=== PATIENT | male | born 1970 | race Two or more races ===

== ENCOUNTER 2020-07-24 23:41 | Inpatient (IN) | payer OTHER ==
[~2020-07-24] VITALS: Ht 167.6 cm; Wt 99.8 kg
--- NOTE | 2020-07-25 00:05 | NUR ---
PATIENT CAME TO THE ER FROM HOME BIBRA C/O SOB 88-90% ON ROOM AIR. PER AMBULANCE'S REPORT APTIENT IS ON 4L OF NASAL CANNULA EN ROUTE TO THE HOSPITAL. PATIENT ALSO NOTED TO HAVE 164/102 BLOOD PRESSURE AND TACHYCARDIC AT 120s PER RA REPORT. PATIENT IS AAOX4. BREATHING EVENLY AND UNLABORED AT 91% ON ROOM AIR; 96% OXYGEN SATURATION AT 4L NASAL CANNULA. PATIENT IS CONNECTED TO THE MAILER. PATIENT ALSO HAS ELEVATED TMERPATURE OF 102s.
[2020-07-25] MEDS ORDERED: DEXAMETHASONE SOD PHOSPHATE 4 MG/ML VIAL IV STA (00:26)
[2020-07-25] MEDS ORDERED: DEXAMETHASONE SOD PHOSPHATE 4 MG/ML VIAL ONE (00:29)
[2020-07-25 00:55] LABS: BASOPHILS % (AUTO) 0.1 % (0.0-2.0); HEMATOCRIT 45 % (39-51); HEMOGLOBIN 15.1 g/dL (13.5-17.5); LYMPHOCYTES # (AUTO) 0.9 /CMM (0.8-4.8); LYMPHOCYTES % (AUTO) 9.9 % (20.0-44.0); MEAN CORPUSCULAR HGB CONC 33 g/dl (31.0-36.0); MEAN CORPUSCULAR VOLUME 85 fL (80-96); MONOCYTES # (AUTO) 0.8 /CMM (0.1-1.30); NEUTROPHILS # (AUTO) 7.9 /CMM (1.8-8.9); PLATELET COUNT (AUTO) 226 /CMM (150-450); RED BLOOD CELL COUNT(AUTO) 5.31 MIL/uL (4.5-6.0); WHITE BLOOD COUNT (AUTO) 9.6 K/uL (4.3-11.0)
--- NOTE | 2020-07-25 01:00 | NUR ---
YASMINEID SWABBED, SENT TO LAB.
[2020-07-25] MEDS ORDERED: AZITHROMYCIN 500 MG in IV D5W 250 ML IV ONE (01:30)
[2020-07-25] MEDS ORDERED: ACETAMINOPHEN 325 MG TABLET PO ONE (01:30)
[2020-07-25 02:43] LABS: D-DIMER 0.61 mg/L(FEU (0.17-0.50)
[2020-07-25 02:48] LABS: CALCIUM, SERUM 8.5 mg/dL (8.5-10.1); CARBON DIOXIDE 27 mmol/L (21-32); CHLORIDE 97 mmol/L (98-107); CREATININE 0.9 mg/dL (0.6-1.3); GLUCOSE 114 mg/dL (74-106); POTASSIUM 3.4 mmol/L (3.5-5.1); SODIUM SERUM 135 mmol/L (136-145); UREA NITROGEN, BLOOD 12 mg/dL (7-18)
[2020-07-25] MEDS ORDERED: AZITHROMYCIN 500 MG VIAL ONE (02:51)
[2020-07-25] MEDS ORDERED: ACETAMINOPHEN ES 500 MG TABLET ONE (02:51)
[2020-07-25 03:02] LABS: ALANINE AMINOTRANSFERASE 56 U/L (12-78); ALBUMIN 3.6 g/dL (3.4-5.0); ALKALINE PHOSPHATASE 56 U/L (46-116); ASPARTATE AMINOTRANSFERASE 51 U/L (15-37); B-TYPE NATRIURETIC PEPTIDE 51 PG/ML (0-125); BILIRUBIN,TOTAL 0.4 mg/dL (0.2-1.0)
[2020-07-25 03:05] LABS: CREATINE KINASE, TOTAL 526 U/L (39-308); FERRITIN 1400 ng/mL (8-388)
[2020-07-25 03:07] LABS: C-REACTIVE PROTEIN 18.6 mg/dL (0.0-0.9)
--- NOTE | 2020-07-25 05:19 | NUR ---
BED ASSIGNMENT 208
[2020-07-25] MEDS ORDERED: ONDANSETRON HCL/PF 4 MG/2 ML VIAL IVP PRN (06:00)
[2020-07-25] MEDS ORDERED: ACETAMINOPHEN 325 MG TABLET PO PRN (06:00)
[2020-07-25] MEDS ORDERED: HYDROCODONE/APAP 5/325MG TABLET PO PRN (06:00)
[2020-07-25] MEDS ORDERED: ALBUTEROL SULFATE INH 18 GM HFA.AER.AD IH PRN (06:00)
[2020-07-25] MEDS ORDERED: MAGNESIUM HYDROXIDE 30 ML UDC PO PRN (06:00)
--- NOTE | 2020-07-25 06:13 | NUR ---
REPORT GIVEN TO JIMMY UGALDE FOR ALYCIA.
--- NOTE | 2020-07-25 06:56 | NUR ---
PATIENT TAKEN TO ASSIGNED ROOM FOR ALYCIA.
[2020-07-25 07:24] LABS: CALCIUM, SERUM 8.4 mg/dL (8.5-10.1)
[2020-07-25 07:31] LABS: ALBUMIN 3.2 g/dL (3.4-5.0); BILIRUBIN,TOTAL 0.4 mg/dL (0.2-1.0); MAGNESIUM 2.5 mg/dL (1.8-2.4); PHOSPHORUS 4.4 mg/dL (2.5-4.9); TOTAL PROTEIN, SERUM 7.6 g/dL (6.4-8.2)
[2020-07-25 07:51] LABS: BASOPHILS % (AUTO) 0.3 % (0.0-2.0); EOSINOPHILS % (AUTO) 0.1 % (0.0-6.0); HEMATOCRIT 46 % (39-51); HEMOGLOBIN 14.7 g/dL (13.5-17.5); LYMPHOCYTES # (AUTO) 1.3 /CMM (0.8-4.8); LYMPHOCYTES % (AUTO) 17.3 % (20.0-44.0); MEAN CORPUSCULAR HGB CONC 32 g/dl (31.0-36.0); MEAN CORPUSCULAR VOLUME 87 fL (80-96); MONOCYTES # (AUTO) 0.4 /CMM (0.1-1.30); MONOCYTES % (AUTO) 4.9 % (2.0-12.0); NEUTROPHILS # (AUTO) 5.7 /CMM (1.8-8.9); NEUTROPHILS % (AUTO) 77.4 % (43.0-81.0); PLATELET COUNT (AUTO) 205 /CMM (150-450); RED BLOOD CELL COUNT(AUTO) 5.25 MIL/uL (4.5-6.0); WHITE BLOOD COUNT (AUTO) 7.3 K/uL (4.3-11.0)
--- NOTE | 2020-07-25 07:55 | NUR ---
RN NOTES: -AT 0613AM, REPORT GIVEN BY ANTONINO LYNN. -PATINT ADMITTED FROM HOME VIA AMBULANCE DUE TO ABDOMINA PAIN FOR 5 DAYS, SOB FOR 3 DAY, HE HAS FEVER-102.6, HIGH BP-164/102 CO-120 HE HAS A DESATURATION SPO2-885, COVID (+) A WEEK AGO, BEFORE HE WAS TRANSFERRED HIS V/S IS STABILIZED IN THE ER LATEST BP-114/80 CO-79 SPO2-98% WITH O2 AT 4L/MIN VIA NC. -FOR TELE MONITOR, USES URINAL,SKIN IS INTACT, RAC G#18 INTACT AND PATIENT, CXR-PNEUMONIA, CT ABDOMEN,PELVIS WITHOUT CONTRAST-NO BOWEL OBSTRUCTION, MILD DIVERTICULOSIS. -AT AROUND 0650 PATIENT ARRIVED IN THE UNIT, ACCOMPANIED BY 2 STAFF ON TELE MONITOR,O2 CONTINUE AT 4L/MIN VIA NC, BELONGINGS CHECKED, PATIENT SIGNED, SKIN IS INTATC NO SKIN ISSUES NOTED AT THIS TIME, AMBULATORY, A/O3-4 CITIZEN OF [place] SPEAKING , ABLE TO COMMUNICATE IN [place]OREAN. -V/S CHECKED T-98.1 SPO2-96% CO-93 RR-20BP-134/91 WT-220 LBS HT-5'6. -ENDORSED TO INCOMING RN FOR ADMISSION AND CONTINUITY OF CARE.
[2020-07-25] MEDS: CHOLECALCIFEROL 1,000 UNIT TABLET (VIT D3) PO SCH (08:27)
[2020-07-25] MEDS: DEXAMETHASONE SOD PHOSPHATE 10 MG/ML VIAL IV SCH (08:27)
[2020-07-25] MEDS: PANTOPRAZOLE 40 MG TABLET.DR PO SCH (08:27)
[2020-07-25] MEDS: ENOXAPARIN SODIUM 40 MG/0.4 ML DISP.SYRIN SQ SCH (08:30)
[2020-07-25] MEDS ORDERED: METO25TA20 PO (09:18)
[2020-07-25] MEDS ORDERED: ASPI-1169 PO (09:18)
[2020-07-25] MEDS ORDERED: AMLO2.5T4 PO (09:18)
[2020-07-25] MEDS ORDERED: DEXTROSE 50%-WATER 50 ML DISP.SYRIN IV PRN (13:00)
[2020-07-25] MEDS: AMLODIPINE BESYLATE 2.5 MG TABLET PO SCH (14:04)
[2020-07-25] MEDS: ASPIRIN 81 MG TAB.CHEW PO SCH (14:04)
[2020-07-25] MEDS: METOPROLOL TARTRATE 25 MG TABLET PO SCH ×2 (14:06→22:08)
[2020-07-25] MEDS: INSULIN REGULAR, HUMAN 100 UNIT/ML 3 ML VIAL SQ PRN ×2 (16:40→22:20)
[2020-07-25] MEDS: BLOOD SUGAR DIAGNOSTIC 1 EACH STRIP IN SCH ×2 (16:43→22:08)
--- NOTE | 2020-07-25 18:30 | NUR ---
RN closing Patient in bed resting, does no appears distress or discomfort. Skin is warm to touch, keep clean/dry, intact midline on right upper arm. Respiratory even and unlabored with oxygen at 4L O2sat 95%. BS 140 mg/dL and given insulin 2 units from sliding sacrale guided. Kept elevated HOB for ensure air way and aspiration precaution and lowest bed for safety. Call light within reach, will endorse manufacturing shift supervisor
[2020-07-25 20:00] VITALS: BP 125/90
--- NOTE | 2020-07-25 20:27 | NUR ---
tele network control operator initial notes received pt on bed awake and alert talking to someone on his cellphone, not in any distress or any discomfort. he's o2 at 4 liters via nasal canula. encourage him to use the call light if he needs the nurse or needs some help. tele SR with Pac's per monitor. kept him warm and comfortable at all times. place call light at reach. will continue monitoring.
[2020-07-25] MEDS: ATORVASTATIN 10 MG TABLET PO SCH (22:07)
--- NOTE | 2020-07-25 22:15 | NUR ---
tele criminology professor notes routine meds given and also blood sugar checked done 156, 2 units of insulin given shira Sq as ordered. snacks also served. no signs of hypo /hyper glycemia noted. will continue monitoring.
[2020-07-26] VITALS: BP 127/88
[2020-07-26 04:00] VITALS: BP 125/82
[2020-07-26] MEDS: AZITHROMYCIN 500 MG in IV D5W 250 ML IV SCH (05:32)
[2020-07-26 06:20] LABS: BASOPHILS % (AUTO) 0.1 % (0.0-2.0); HEMATOCRIT 45 % (39-51); HEMOGLOBIN 14.9 g/dL (13.5-17.5); LYMPHOCYTES # (AUTO) 1.6 /CMM (0.8-4.8); LYMPHOCYTES % (AUTO) 9.9 % (20.0-44.0); MEAN CORPUSCULAR HGB CONC 33 g/dl (31.0-36.0); MEAN CORPUSCULAR VOLUME 86 fL (80-96); MONOCYTES # (AUTO) 1.2 /CMM (0.1-1.30); MONOCYTES % (AUTO) 7.9 % (2.0-12.0); NEUTROPHILS # (AUTO) 12.9 /CMM (1.8-8.9); NEUTROPHILS % (AUTO) 82.1 % (43.0-81.0); PLATELET COUNT (AUTO) 294 /CMM (150-450); RED BLOOD CELL COUNT(AUTO) 5.26 MIL/uL (4.5-6.0); WHITE BLOOD COUNT (AUTO) 15.8 K/uL (4.3-11.0)
[2020-07-26] MEDS: BLOOD SUGAR DIAGNOSTIC 1 EACH STRIP IN SCH ×4 (06:54→21:28)
[2020-07-26] MEDS: INSULIN REGULAR, HUMAN 100 UNIT/ML 3 ML VIAL SQ PRN ×2 (07:01→17:20)
[2020-07-26 07:13] LABS: CALCIUM, SERUM 8.8 mg/dL (8.5-10.1); CREATININE 0.8 mg/dL (0.6-1.3); MAGNESIUM 2.6 mg/dL (1.8-2.4); PHOSPHORUS 4.5 mg/dL (2.5-4.9); POTASSIUM 3.7 mmol/L (3.5-5.1)
--- NOTE | 2020-07-26 07:34 | NUR ---
CRACKING UNIT OPERATOR OPENING NOTES RECEIVED PATIENT IN BED, AWAKE, A/O X4. PATIENT ON OXYGEN THERAPY AT 2LPM; BREATHING EVEN AND UNLABORED AT THIS TIME. NO SOB NOTED. TELE MONITOR WITH A CURRENT READING OF ST 105. NO COMPLAINS OF PAIN. SAFETY PRECAUTIONS IN PLACE; BED IN LOW POSITION AND LOCKED, RAILS UP X2, CALL LIGHT WITHIN REACH. WILL CONTINUE TO MONITOR PATIENT.
--- NOTE | 2020-07-26 07:35 | NUR ---
tele electric motor mechanic closing notes pt awake and alert watching tv at this time . all due meds given and all needs met. blood sugar 149, 2 units of insulin given shira SQ as ordered. tele SR per monitor. kept him warm and comfortable at all times. will continue monitoring and endorse to am nurse for continuity of care. place call light at reach.
[2020-07-26 08:00] VITALS: BP 123/74
[2020-07-26] MEDS: ASPIRIN 81 MG TAB.CHEW PO SCH (08:42)
[2020-07-26] MEDS: DEXAMETHASONE SOD PHOSPHATE 10 MG/ML VIAL IV SCH (08:42)
[2020-07-26] MEDS: CHOLECALCIFEROL 1,000 UNIT TABLET (VIT D3) PO SCH (08:42)
[2020-07-26] MEDS: METOPROLOL TARTRATE 25 MG TABLET PO SCH ×2 (08:43→21:19)
[2020-07-26] MEDS: PANTOPRAZOLE 40 MG TABLET.DR PO SCH (08:43)
[2020-07-26] MEDS: AMLODIPINE BESYLATE 2.5 MG TABLET PO SCH (08:43)
[2020-07-26] MEDS: ENOXAPARIN SODIUM 40 MG/0.4 ML DISP.SYRIN SQ SCH (08:45)
[2020-07-26 16:00] VITALS: BP 112/71
[2020-07-26] MEDS ORDERED: REMDESIVIR (CHARGED) 200 MG, *LOADING DOSE 1 EA in IV NS 0.9% 210 ML IV ONE (18:00)
--- NOTE | 2020-07-26 18:53 | NUR ---
DEWATERING FILTERING SUPERVISOR CLOSING NOTES PATIENT REMAINS IN BED,RESTING, A/O X4. PATIENT ON OXYGEN THERAPY AT 2LPM; BREATHING EVEN AND UNLABORED DURING THE DAY. NO SOB NOTED. NO COMPLAINS OF PAIN DURING SHIFT. ALL NEEDS ATTENDED THROUGHOUT THE DAY. SAFETY PRECAUTIONS IN PLACE; BED IN LOW POSITION AND LOCKED, RAILS UP X2, CALL LIGHT WITHIN REACH. WILL ENDORSE TO PERCUSSION TUNER NURSE.
[2020-07-26] MEDS: ATORVASTATIN 10 MG TABLET PO SCH (21:22)
--- NOTE | 2020-07-26 22:16 | NUR ---
CAKE PUNCHER OPENING NOTES PT RECEIVED BEDSIDE. ALERT AND ORIENTED X4. CALM, COOPERATIVE. NO COMPLAINTS, NO SIGNS OF DISTRESS. PT ON 2L NASAL CANNULA. TOLERATING WELL. NO SOB. EVEN AND UNLABORED BREATHING NOTED. OXYGEN SATURATION 96% VIA PULSE OX. VITAL SIGNS: 120/ 64, PULSE 80, RESP. 20, TEMP. 98. WILL CONTINUE TO MONITOR O2 SATURATION. BED LOCKED. BED IN SEMI FOWLERS POSITION. CALL LIGHT WITHIN REACH. WILL CONTINUE PLAN OF CARE.
[2020-07-27] VITALS (10 sets, daily range): BP systolic 101–122; BP diastolic 47–82
--- NOTE | 2020-07-27 01:57 | NUR ---
MS RN - PLASMA TRANSFUSION STARTED PLASMA TRANSFUSION STARTED @ 75 ML/ HR. PT TOLERATING WELL. NO ADVERSE EFFECTS NOTED. NO SOB. NO PAIN ON SITE. VITAL SIGNS: 122/ 82, PULSE 86, RESP 20, TEMP. 98.7, O2 SATURATION 94%. WILL CONTINUE TO MONITOR.
--- NOTE | 2020-07-27 03:57 | NUR ---
MS RN - PLASMA TRANSFUSION ENDED PLASMA TRANSFUSION ENDED. NO ADVERSE EFFECTS. PT TOLERATED WELL. VITAL SIGNS: 101/ 47, PULSE 83, TEMP. 98.2, O2 SATURATION 96%. NO SOB. WILL CONTINUE TO MONITOR PATIENT.
[2020-07-27] MEDS: AZITHROMYCIN 500 MG in IV D5W 250 ML IV SCH (05:41)
--- NOTE | 2020-07-27 06:31 | NUR ---
MS RN CLOSING NOTES PT LAYING IN BED. CALM, COOPERATIVE. ALERT AND ORIENTED X4. NO COMPLAINTS. NO SIGNS OF DISTRESS. PT ON 2L NASAL CANNULA. TOLERATING WELL. NO SOB. EVEN AND UNLABORED BREATHING NOTED. OXYGEN SATURATION 96%. PT RECEIVED CONVALESCENT PLASMA. TOLERATED WELL. NO ADVERSE REACTIONS. WILL CONTINUE TO MONITOR. RFG #18 INTACT, PATENT, FLUSHING WELL. NO OCCLUSIONS, NO INFILTRATION. BED LOCKED IN LOWEST POSITION. CALL LIGHT WITHIN REACH. WILL ENDORSE TO NEXT SHIFT. WILL CONTINUE PLAN OF CARE.
[2020-07-27] MEDS: BLOOD SUGAR DIAGNOSTIC 1 EACH STRIP IN SCH ×4 (06:59→22:27)
[2020-07-27 07:03] LABS: BASOPHILS % (AUTO) 0.1 % (0.0-2.0); HEMATOCRIT 42 % (39-51); HEMOGLOBIN 13.7 g/dL (13.5-17.5); LYMPHOCYTES # (AUTO) 1.7 /CMM (0.8-4.8); LYMPHOCYTES % (AUTO) 13.1 % (20.0-44.0); MEAN CORPUSCULAR HGB CONC 33 g/dl (31.0-36.0); MEAN CORPUSCULAR VOLUME 85 fL (80-96); MONOCYTES % (AUTO) 7.6 % (2.0-12.0); NEUTROPHILS # (AUTO) 10.1 /CMM (1.8-8.9); NEUTROPHILS % (AUTO) 79.2 % (43.0-81.0); PLATELET COUNT (AUTO) 329 /CMM (150-450); RED BLOOD CELL COUNT(AUTO) 4.94 MIL/uL (4.5-6.0); WHITE BLOOD COUNT (AUTO) 12.8 K/uL (4.3-11.0)
--- NOTE | 2020-07-27 07:35 | NUR ---
CONSUMER SALES REPRESENTATIVE OPENING NOTE RECEIVED PATIENT SITTING AT SIDE OF BED. AWAKE, ALERT AND ORIENTED X 4. NO S/S OF PAIN NOTED. CONTINUES ON O2 2L VIA NC WITH NO S/S OF RESPIRATORY DISTRESS NOTED. IV ACCESS TO RIGHT FOREARM INTACT AND PATENT. CALL LIGHT WITHIN REACH. ASPIRATION, FALL AND SAFETY PRECAUTIONS MAINTAINED. WILL CONTINUE TO MONITOR.
[2020-07-27 08:00] LABS: ALBUMIN 2.9 g/dL (3.4-5.0); BILIRUBIN,DIRECT 0.1 mg/dL (0.0-0.2); BILIRUBIN,TOTAL 0.3 mg/dL (0.2-1.0); CALCIUM, SERUM 8.5 mg/dL (8.5-10.1); CREATININE 0.8 mg/dL (0.6-1.3); MAGNESIUM 2.5 mg/dL (1.8-2.4); PHOSPHORUS 3.3 mg/dL (2.5-4.9); POTASSIUM 3.6 mmol/L (3.5-5.1); TOTAL PROTEIN, SERUM 7.3 g/dL (6.4-8.2)
[2020-07-27] MEDS: CHOLECALCIFEROL 1,000 UNIT TABLET (VIT D3) PO SCH (08:45)
[2020-07-27] MEDS: METOPROLOL TARTRATE 25 MG TABLET PO SCH ×2 (08:46→22:40)
[2020-07-27] MEDS: AMLODIPINE BESYLATE 2.5 MG TABLET PO SCH (08:46)
[2020-07-27] MEDS: ASPIRIN 81 MG TAB.CHEW PO SCH (08:46)
[2020-07-27] MEDS: PANTOPRAZOLE 40 MG TABLET.DR PO SCH (08:46)
[2020-07-27] MEDS: DEXAMETHASONE SOD PHOSPHATE 10 MG/ML VIAL IV SCH (08:47)
[2020-07-27] MEDS: ENOXAPARIN SODIUM 40 MG/0.4 ML DISP.SYRIN SQ SCH (08:49)
[2020-07-27] MEDS: INSULIN REGULAR, HUMAN 100 UNIT/ML 3 ML VIAL SQ PRN ×3 (12:46→22:33)
[2020-07-27] MEDS: REMDESIVIR (CHARGED) 100 MG in IV NS 0.9% 100 ML IV SCH (17:20)
--- NOTE | 2020-07-27 18:07 | NUR ---
SUPERVISOR LENDING ACTIVITIES CLOSING NOTE PATIENT CURRENTLY SITTING UP IN BED. AWAKE, ALERT AND ORIENTED X 4. ABLE TO MAKE NEEDS KNOWN. COMPLAINTS OF MILD BACK PAIN WITH POSITIVE EFFECT FROM MEDICATION. IV ACCESS TO RIGHT FOREARM INTACT AND PATENT. CONTINUES ON REMDESIVIR WITH NO SIDE EFFECTS NOTED. CONTINUES ON O2 2L VIA NC WITH NO S/S OF RESPIRATORY DISTRESS NOTED. VITAL SIGNS: BP 112/73 HR 74 RR 19 T 98.0 O2 SAT 97%. CALL LIGHT WITHIN REACH. ASPIRATION, SAFETY AND FALL PRECAUTIONS MAINTAINED. WILL ENDORSE PLAN OF CARE TO ONCOMING SHIFT.
--- NOTE | 2020-07-27 19:30 | NUR ---
MS RN OPENING NOTE RECEIVED PATIENT IN BED. A/OX4. ON OXYGEN 4L VIA NASAL CANNULA. RESPIRATIONS ARE EVEN AND UNLABORED. NO S/S SOB NOTED. NO C/O PAIN AT THIS TIME. IN NO APPARENT DISTRESS. IV ACCESS IN RFA#18 PATENT AND SALINE LOCKED. BED IS LOW AND LOCKED, HOB ELEVATED IN HIGH FOWLERS, SIDE RIALS UP X3, CALL LIGHT WITHIN REACH. WILL CONTINUE TO MONITOR THROUGHOUT SHIFT.
[2020-07-27] MEDS: ATORVASTATIN 10 MG TABLET PO SCH (22:27)
[2020-07-28] MEDS: AZITHROMYCIN 500 MG in IV D5W 250 ML IV SCH (05:30)
[2020-07-28 06:21] LABS: BASOPHILS % (AUTO) 0.2 % (0.0-2.0); HEMATOCRIT 43 % (39-51); HEMOGLOBIN 14.2 g/dL (13.5-17.5); LYMPHOCYTES # (AUTO) 1.7 /CMM (0.8-4.8); LYMPHOCYTES % (AUTO) 15.6 % (20.0-44.0); MEAN CORPUSCULAR HGB CONC 33 g/dl (31.0-36.0); MEAN CORPUSCULAR VOLUME 85 fL (80-96); MONOCYTES # (AUTO) 1.1 /CMM (0.1-1.30); MONOCYTES % (AUTO) 9.8 % (2.0-12.0); NEUTROPHILS # (AUTO) 8.1 /CMM (1.8-8.9); NEUTROPHILS % (AUTO) 74.4 % (43.0-81.0); PLATELET COUNT (AUTO) 400 /CMM (150-450); RED BLOOD CELL COUNT(AUTO) 5.07 MIL/uL (4.5-6.0); WHITE BLOOD COUNT (AUTO) 10.9 K/uL (4.3-11.0)
--- NOTE | 2020-07-28 06:23 | NUR ---
MS RN CLOSING NOTE PATIENT RESTING IN BED. A/OX4. REMAINS ON OXYGEN 4L VIA NASAL CANNULA. NO RESP DISTRESS NOTED, PATIENT DID NOT VOICE ANY SOB. NO C/O PAIN. NO DISTRESS. IV ACCESS MAINTAINED IN RFA#18. BED REMAINS LOW AND LOCKED, HOB ELEVATED IN HIGH FOWLERS, SIDE RIALS UP X3, CALL LIGHT WITHIN REACH. WILL ENDORSE TO NEXT SHIFT.
[2020-07-28] MEDS: BLOOD SUGAR DIAGNOSTIC 1 EACH STRIP IN SCH ×4 (06:35→23:32)
[2020-07-28 07:30] LABS: ALBUMIN 2.9 g/dL (3.4-5.0); BILIRUBIN,DIRECT 0.1 mg/dL (0.0-0.2); BILIRUBIN,TOTAL 0.3 mg/dL (0.2-1.0); CALCIUM, SERUM 8.7 mg/dL (8.5-10.1); CREATININE 0.7 mg/dL (0.6-1.3); POTASSIUM 3.7 mmol/L (3.5-5.1); TOTAL PROTEIN, SERUM 7.3 g/dL (6.4-8.2)
--- NOTE | 2020-07-28 07:30 | NUR ---
PT RECEIVED RESTING COMFORTABLY IN BED. NO S/S OR C/O PAIN OR DISTRESS NOTED. SIDE RAILS UP X2, CALL LIGHT LEFT WITHIN REACH. WILL CONTINUE PLAN OF CARE.
[2020-07-28] MEDS: ASPIRIN 81 MG TAB.CHEW PO SCH (08:58)
[2020-07-28] MEDS: PANTOPRAZOLE 40 MG TABLET.DR PO SCH (08:58)
[2020-07-28] MEDS: METOPROLOL TARTRATE 25 MG TABLET PO SCH ×2 (08:58→23:31)
[2020-07-28] MEDS: CHOLECALCIFEROL 1,000 UNIT TABLET (VIT D3) PO SCH (08:58)
[2020-07-28] MEDS: AMLODIPINE BESYLATE 2.5 MG TABLET PO SCH (08:59)
[2020-07-28] MEDS: DEXAMETHASONE SOD PHOSPHATE 10 MG/ML VIAL IV SCH (08:59)
[2020-07-28] MEDS: ENOXAPARIN SODIUM 40 MG/0.4 ML DISP.SYRIN SQ SCH (09:01)
[2020-07-28] MEDS: REMDESIVIR (CHARGED) 100 MG in IV NS 0.9% 100 ML IV SCH (17:20)
[2020-07-28] MEDS: INSULIN REGULAR, HUMAN 100 UNIT/ML 3 ML VIAL SQ PRN ×2 (17:21→23:36)
--- NOTE | 2020-07-28 19:30 | NUR ---
CHANGE OF SHIFT REPORT PT RESTING COMFORTABLY IN BED. NO S/S OR C/O PAIN OR DISTRESS NOTED. SIDE RAILS UP X2, CALL LIGHT LEFT WITHIN REACH. PT KEPT CLEAN, DRY, AND COMFORTABLE. NO SIGNIFICANT CHANGES SINCE PREVIOUS SHIFT. REPORT GIVEN TO LOR UGALDE.
[2020-07-28 20:00] VITALS: BP 108/72
[2020-07-28] MEDS: ATORVASTATIN 10 MG TABLET PO SCH (23:31)
--- NOTE | 2020-07-29 01:13 | NUR ---
MS2/RN DURING INITIAL SHIFT ROUNDING, PATIENT WAS ON BED AWAKE, ALERT, ORIENTED, COMFORTABLE, NO C/O PAIN, NO DISTRESS NOTED, CALL LIGHT IN REACH. PRESENTLY, PATIENT IS SLEEPING, APPEAR COMFORTABLE, NO DISTRESS NOTED, CALL LIGHT IN REACH. WILL MONITOR.
[2020-07-29] MEDS: AZITHROMYCIN 500 MG in IV D5W 250 ML IV SCH (06:22)
--- NOTE | 2020-07-29 06:44 | NUR ---
MS2/RN PATIENT IS AWAKE, COMFORTABLE, NO C/O PAIN, NO DISTRESS NOTED, ALL NEEDS ATTENDED AT THIS TIME, WILL CONTINUE TO MONITOR.
[2020-07-29] MEDS: BLOOD SUGAR DIAGNOSTIC 1 EACH STRIP IN SCH ×4 (06:51→22:21)
--- NOTE | 2020-07-29 07:00 | NUR ---
RN OPENING NOTE PT IS AWAKE IN BED. A/OX3. PT IS COOPERATIVE PT IS CURRENTLY ON 4L NC WITH NO SIGNS OF RESPIRATORY DISTRESS. BT IS AMBULATORY WITH ASSISTANCE. PT IS ABLE TO EAT INDEPENDENTLY. IVF PRESENT IN THE RIGHT FOREARM. BED SET IN LOWEST POSITION. SIDE RAILS RAISED. BED SET IN LOWEST POSITION. CALL LIGHT WITHIN REACH. WILL CONTINUE TO MONITOR.
[2020-07-29 07:12] LABS: BASOPHILS % (AUTO) 0.1 % (0.0-2.0); EOSINOPHILS % (AUTO) 0.1 % (0.0-6.0); HEMATOCRIT 43 % (39-51); HEMOGLOBIN 14.3 g/dL (13.5-17.5); LYMPHOCYTES # (AUTO) 2.2 /CMM (0.8-4.8); MEAN CORPUSCULAR HGB CONC 33 g/dl (31.0-36.0); MEAN CORPUSCULAR VOLUME 85 fL (80-96); MONOCYTES # (AUTO) 1.4 /CMM (0.1-1.30); MONOCYTES % (AUTO) 12.7 % (2.0-12.0); NEUTROPHILS # (AUTO) 7.4 /CMM (1.8-8.9); NEUTROPHILS % (AUTO) 67.1 % (43.0-81.0); PLATELET COUNT (AUTO) 492 /CMM (150-450); RED BLOOD CELL COUNT(AUTO) 5.05 MIL/uL (4.5-6.0)
[2020-07-29 07:42] LABS: ALBUMIN 2.9 g/dL (3.4-5.0); BILIRUBIN,DIRECT 0.1 mg/dL (0.0-0.2); BILIRUBIN,TOTAL 0.3 mg/dL (0.2-1.0); CALCIUM, SERUM 8.8 mg/dL (8.5-10.1); CREATININE 0.8 mg/dL (0.6-1.3); TOTAL PROTEIN, SERUM 7.1 g/dL (6.4-8.2)
[2020-07-29 08:00] VITALS: BP 135/95
[2020-07-29] MEDS: CHOLECALCIFEROL 1,000 UNIT TABLET (VIT D3) PO SCH (09:28)
[2020-07-29] MEDS: ENOXAPARIN SODIUM 40 MG/0.4 ML DISP.SYRIN SQ SCH (09:29)
[2020-07-29] MEDS: ASPIRIN 81 MG TAB.CHEW PO SCH (09:30)
[2020-07-29] MEDS: AMLODIPINE BESYLATE 2.5 MG TABLET PO SCH (09:31)
[2020-07-29] MEDS: METOPROLOL TARTRATE 25 MG TABLET PO SCH ×2 (09:32→20:59)
[2020-07-29] MEDS: PANTOPRAZOLE 40 MG TABLET.DR PO SCH (09:34)
[2020-07-29] MEDS: DEXAMETHASONE SOD PHOSPHATE 10 MG/ML VIAL IV SCH (09:34)
--- NOTE | 2020-07-29 15:45 | NUR ---
PT'S PCR RESULT FOR 07/25/2020 IS POSITIVE.NOTIFIED ROBERT,CARLO AND MADE AWARE.
[2020-07-29 16:00] VITALS: BP 122/79
[2020-07-29] MEDS: REMDESIVIR (CHARGED) 100 MG in IV NS 0.9% 100 ML IV SCH (17:22)
--- NOTE | 2020-07-29 19:17 | NUR ---
RN CLOSING NOTE PT IS RESTING IN BED. A/O X3 AND COOPERATIVE. PT IS ABLE TO UNDERSTAND KHMER AND TO VERBALIZE NEEDS TO NURSE. PT IS ON 4L O2 VIA NC. NO SIGNS OF RESPIRATORY DISTRESS. PT IS AMBULATORY WITH BATHROOM PRIVILEGES. SKIN IS INTACT. HEP LOCK PRESENT ON RIGHT FOREARM. SAFETY MEASURES IN PLACE. BED IN THE LOWEST POSITION. SIDE RAILS RAISED. CALL LIGHT WITHIN REACH.
--- NOTE | 2020-07-29 19:30 | NUR ---
RN opening notes Received Pt in bed resting comfortably. Pt is alert and orientedX3. Pt speaks Armenian and able to make needs known. Respiration on 4 L NC. No SOB. No S/S of distress noted. IV site at LFA# 20 is clean, intact and flushes well. Safety precautions is maintained. Bed at low position, brakes locked, side rails up, hob elevated, urinal at the bed side and call light is within reach. Will continue to monitor.
[2020-07-29 20:00] VITALS: BP 118/78
[2020-07-29] MEDS: ATORVASTATIN 10 MG TABLET PO SCH (22:13)
[2020-07-29] MEDS: INSULIN REGULAR, HUMAN 100 UNIT/ML 3 ML VIAL SQ PRN (22:25)
[2020-07-30] MEDS: BLOOD SUGAR DIAGNOSTIC 1 EACH STRIP IN SCH ×4 (06:57→21:41)
[2020-07-30] MEDS: INSULIN REGULAR, HUMAN 100 UNIT/ML 3 ML VIAL SQ PRN ×2 (06:58→21:45)
--- NOTE | 2020-07-30 07:00 | NUR ---
RN closing notes Received Pt in bed resting comfortably. Pt is alert and orientedX3. Pt speaks Estonian and able to make needs known. Respiration on 4 L NC. No SOB. No S/S of distress noted. IV site at LFA# 20 is clean, intact and flushes well. VS is stable. Afebrile. Kept Pt clean, dry and comfortable. Safety precautions is maintained. Bed at low position, brakes locked, side rails up, hob elevated, urinal at the bed side and call light is within reach. Will endorse to morning nurse for ALYCIA.
[2020-07-30 07:27] LABS: ALBUMIN 3.1 g/dL (3.4-5.0); BILIRUBIN,DIRECT 0.1 mg/dL (0.0-0.2); BILIRUBIN,TOTAL 0.4 mg/dL (0.2-1.0); CALCIUM, SERUM 8.7 mg/dL (8.5-10.1); CREATININE 0.7 mg/dL (0.6-1.3); POTASSIUM 4.1 mmol/L (3.5-5.1); TOTAL PROTEIN, SERUM 7.4 g/dL (6.4-8.2)
[2020-07-30 07:32] LABS: BASOPHILS % (AUTO) 0.2 % (0.0-2.0); EOSINOPHILS % (AUTO) 0.8 % (0.0-6.0); HEMATOCRIT 46 % (39-51); HEMOGLOBIN 15.2 g/dL (13.5-17.5); LYMPHOCYTES # (AUTO) 2.8 /CMM (0.8-4.8); LYMPHOCYTES % (AUTO) 29.6 % (20.0-44.0); MEAN CORPUSCULAR HGB CONC 33 g/dl (31.0-36.0); MEAN CORPUSCULAR VOLUME 85 fL (80-96); MONOCYTES # (AUTO) 1.4 /CMM (0.1-1.30); MONOCYTES % (AUTO) 14.4 % (2.0-12.0); NEUTROPHILS # (AUTO) 5.2 /CMM (1.8-8.9); PLATELET COUNT (AUTO) 530 /CMM (150-450); RED BLOOD CELL COUNT(AUTO) 5.37 MIL/uL (4.5-6.0); WHITE BLOOD COUNT (AUTO) 9.4 K/uL (4.3-11.0)
--- NOTE | 2020-07-30 07:37 | NUR ---
HAM ROLLING MACHINE OPERATOR OPENING NOTES RECEIVED PATIENT IN BED, AWAKE, A/O X4. PATIENT ON OXYGEN THERAPY AT 4 LPM; BREATHING EVEN AND UNLABORED AT THIS TIME. NO SOB NOTED. TELE MONITOR WITH A CURRENT READING OF SR. NO COMPLAINS OF PAIN. LFA IV ACCESS G #20 SL. SAFETY PRECAUTIONS IN PLACE; BED IN LOW POSITION AND LOCKED, RAILS UP X2, CALL LIGHT WITHIN REACH. WILL CONTINUE TO MONITOR PATIENT.
[2020-07-30 08:00] VITALS: BP 123/83
[2020-07-30] MEDS: PANTOPRAZOLE 40 MG TABLET.DR PO SCH (09:33)
[2020-07-30] MEDS: ASPIRIN 81 MG TAB.CHEW PO SCH (09:34)
[2020-07-30] MEDS: DEXAMETHASONE SOD PHOSPHATE 10 MG/ML VIAL IV SCH (09:34)
[2020-07-30] MEDS: CHOLECALCIFEROL 1,000 UNIT TABLET (VIT D3) PO SCH (09:34)
[2020-07-30] MEDS: AMLODIPINE BESYLATE 2.5 MG TABLET PO SCH (09:35)
[2020-07-30] MEDS: METOPROLOL TARTRATE 25 MG TABLET PO SCH ×2 (09:35→20:40)
[2020-07-30] MEDS: ENOXAPARIN SODIUM 40 MG/0.4 ML DISP.SYRIN SQ SCH (09:36)
--- NOTE | 2020-07-30 13:50 | NUR ---
MS RN NOTES RT IN THE ROOM WITH PATIENT CHECKING ON HIS SATURATION OF OXYGEN. PATIENT DESATURATES TO 88% ON RA WHILE IN BED.
[2020-07-30] MEDS ORDERED: ATOR10TA PO (14:16)
--- NOTE | 2020-07-30 14:19 | NUR ---
MS RN NOTES RT IN THE ROOM WITH PATIENT CHECKING ON HIS SATURATION OF OXYGEN. PATIENT DESATURATES TO 88% ON RA AT REST.
[2020-07-30 16:00] VITALS: BP 123/90
[2020-07-30] MEDS: REMDESIVIR (CHARGED) 100 MG in IV NS 0.9% 100 ML IV SCH (18:09)
--- NOTE | 2020-07-30 19:42 | NUR ---
CLINICAL INFORMATICS EDUCATOR CLOSING NOTES PATIENT REMAINS IN BED, AWAKE, A/O X4. PATIENT ON OXYGEN THERAPY AT 4 LPM; BREATHING EVEN AND UNLABORED AT THIS TIME. NO SOB NOTED DURING THE DAY. NO COMPLAINS OF PAIN DURING THE DAY. LFA IV ACCESS G #20 SL. ALL NEEDS ATTENDED DURING THE DAY. SAFETY PRECAUTIONS IN PLACE; BED IN LOW POSITION AND LOCKED, RAILS UP X2, CALL LIGHT WITHIN REACH. ALYCIA ENDORSED TO CASING SOAKER NURSE.
[2020-07-30 20:00] VITALS: BP 112/69
[2020-07-30] MEDS: ATORVASTATIN 10 MG TABLET PO SCH (21:41)
[2020-07-30 23:16] VITALS: BP 112/69
--- NOTE | 2020-07-30 23:44 | NUR ---
RECEIVING NOTES: ALERT AND ORIENTATED NOTED HE AMBULATES TO THE BATHROOM STEADY ON HIS LEGS N/C 2 LITES SATS 97% CALL LIGHT REVIEWED WITH THE PATIENT
[2020-07-31] VITALS: BP 99/67
[2020-07-31 04:00] VITALS: BP 106/62
[2020-07-31 05:53] VITALS: BP 106/64
--- NOTE | 2020-07-31 06:02 | NUR ---
CLOSING NOTES: ALERT AND ORIENTATED X4 FULL CODE SLEPT A GOOD 8 HOURS THIS SHIFT AMBULATES TO THE BATHROOM STEADY ON HIS LEGS 02 2 LITERS N/C HAILEY PALACIOS WANTS TO DISCHARGE THE PATIENT BUT THIS PATIENT HAS INSURANCE THAT 1ST NEED TO BE OKAYED AND THEN DELIVERED AND THE COMPANY DOES NOT DELIVER ON THE WEEKENDS
[2020-07-31] MEDS: BLOOD SUGAR DIAGNOSTIC 1 EACH STRIP IN SCH ×3 (06:39→16:41)
[2020-07-31 08:00] VITALS: BP 118/81
--- NOTE | 2020-07-31 08:14 | NUR ---
RN OPENING NOTE Patient is resting in bed, A/O x4, showing no signs of acute distress or SOB, saturating 94% on 2L NC. When is on room air and ambulating, he desaturated to 88%. Patient denies pain and discomfort at this time. Bed is in lowest position, side rails x2, in upright position, call light is within reach, fall safety and aspiration precautions enforced. Will continue with plan of care.
[2020-07-31] MEDS: PANTOPRAZOLE 40 MG TABLET.DR PO SCH (09:00)
[2020-07-31] MEDS: ASPIRIN 81 MG TAB.CHEW PO SCH (09:00)
[2020-07-31] MEDS: CHOLECALCIFEROL 1,000 UNIT TABLET (VIT D3) PO SCH (09:00)
[2020-07-31] MEDS: METOPROLOL TARTRATE 25 MG TABLET PO SCH (09:00)
[2020-07-31] MEDS: DEXAMETHASONE SOD PHOSPHATE 10 MG/ML VIAL IV SCH (09:00)
[2020-07-31] MEDS: AMLODIPINE BESYLATE 2.5 MG TABLET PO SCH (09:00)
[2020-07-31] MEDS: ENOXAPARIN SODIUM 40 MG/0.4 ML DISP.SYRIN SQ SCH (09:03)
[2020-07-31] MEDS: INSULIN REGULAR, HUMAN 100 UNIT/ML 3 ML VIAL SQ PRN ×2 (12:00→16:43)
--- NOTE | 2020-07-31 13:19 | NUR ---
RN NOTE Patient ambulated around the room, in no acute distress, o2 sat 88%-90%. Upon rest, o2 sat is 90-91% MD notified. Will continue with plan of care.
[2020-07-31 16:00] VITALS: BP 120/79
[2020-07-31 16:58] VITALS: BP 120/79
--- NOTE | 2020-07-31 18:18 | NUR ---
SENIOR ASSET MANAGER NOTE Patient is stable on room air, saturating 95% while ambulating. Notified Dr. Jack and ok to discharge home on room air. No need for o2. Skin assessed, skin remains intact. DC instructions provided, patient verbalized understanding. Patient's daughter will order picker/assembler the patient tonight. All patient needs met, all due medications given, patient kept clean and dry throughout shift. Will endorse to nightman.
--- NOTE | 2020-07-31 18:52 | NUR ---
IV removed, ID band removed, patient left unit at 1850, daughter picked up patient in private car.
== END 2020-07-31 18:54 | disposition home or self-care (01) | DRG 137 ==
LOC: ER 23:47 → TRANSITION 07-25 04:00 → UNDOADMIN 07-25 04:10 → TRANSITION 07-25 04:10 → TELE2 07-25 06:16 → MEDSG2 07-26 12:06 → TELE2 07-26 12:06 → UNDODISIN 07-31 18:54
PROVIDERS: ADMIT Nurse Practitioner Acute Care
PROC: XW033E5 Introduction of Remdesivir Anti-infective into Peripheral Vein, Percutaneous Approach, New Technology Group 5 (ICD-10-PCS; principal; 2020-07-26)
PROC: XW13325 Transfusion of Convalescent Plasma (Nonautologous) into Peripheral Vein, Percutaneous Approach, New Technology Group 5 (ICD-10-PCS; 2020-07-27)
DX: U07.1 COVID-19 (principal); J12.82 Pneumonia due to coronavirus disease 2019; J96.01 Acute respiratory failure with hypoxia; I10 Essential (primary) hypertension; E11.9 Type 2 diabetes mellitus without complications; K57.30 Diverticulosis of large intestine without perforation or abscess without bleeding; E66.01 Morbid (severe) obesity due to excess calories; D68.69 Other thrombophilia; Z68.35 Body mass index [BMI] 35.0-35.9, adult
CPT/HCPCS: 36415; 71045-TC; 80048-TC; 80053-TC; 80061-TC; 80076-TC; 82550-TC; 82553; 82728-TC; 82962-TC; 83605-TC; 83615-TC; 83690-TC; 83735-TC; 83880; 84100-TC; 84484-TC; 85025-TC; 85378-TC; 85610-TC; 85730-TC; 86140-TC; 86850-TC; 87040-TC; 87081-TC; A4216; G0378; J0456; J1100; J1650; J1815; J7030; J7050; J7060; P9017-BL; U0003